=== PATIENT | male | born 1945 | race Caucasian/White ===

== ENCOUNTER 2018-03-17 16:10 | Emergency (ER) | payer MEDICARE, OTHER ==
[2018-03-17 16:20] VITALS: BP 119/71
--- NOTE | 2018-03-17 17:22 | EDPHY ---
H & P Time Seen by Provider: 03/17/18 16:37 HPI/ROS: CHIEF COMPLAINT: Left shoulder pain HISTORY OF PRESENT ILLNESS: Patient is a 70-year-old male who presents emergency department left shoulder pain. The patient tripped while hiking. He struck his left shoulder. He now has mild to moderate pain. It is worse with movement. No numbness or tingling. Patient did not strike his head. He denies any other injury. No neck pain. REVIEW OF SYSTEMS: My complete review of systems is negative except as mentioned in the HPI. Past Medical/Surgical History: Gout, prostate issues Smoking Status: Never smoked Physical Exam: Vitals noted General Appearance: [Alert and no distress]. Head: [Pupils equal. Normal]. Respiratory: [No respiratory distress]. Cardiac: [regular rate and rhythm]. Extremities: [Patient's left shoulder appears normal. The patient has mild tenderness to palpation over his deltoid. No clavicular TTP, no scapular tenderness palpation]. Mild discomfort with rotation. Neurovascular intact distally Skin: No rashes or lesions. Neuro: [Alert. Normal mood and affect]. Constitutional: Initial Vital Signs Temperature (C) 36.3 C 03/17/18 16:17 Heart Rate 68 03/17/18 16:17 Respiratory Rate 15 03/17/18 16:17 Blood Pressure 119/71 03/17/18 16:17 O2 Sat (%) 97 03/17/18 16:17 O2 Delivery Mode Room Air Allergies/Adverse Reactions: allopurinol [Allopurinol] Allergy (Verified 07/11/12 08:13) Home Medications: Medication Instructions Recorded Cyclobenzaprine [Flexeril 10 MG 10 mg PO PRN 07/11/12 (RX)] Probenecid [Probenecid 500mg (RX)] 500 mg PO BID 07/11/12 RIZATRIPTAN BENZOATE [Maxalt Uniform Cap Operator] 5 mg PO PRN 07/11/12 TESTOSTERONE [TESTIM] 5 gm TD DAILY 07/11/12 metroNIDAZOLE 0.75% [Metrocream 45 gm TOP DAILY 07/11/12 0.75% (RX)] oxyCODONE/APAP 5/325 [Percocet 1 tab PO Q4-6PRN PRN #14 tab 07/11/12 5/325] Medical Decision Making - Diagnostics Imaging Results: Imaging Impressions Shoulder X-Ray 03/17/18 16:33 Impression: Normal left shoulder series. ED Course/Re-evaluation: In the emergency department I discussed possible etiologies with the patient. I answered all his questions. X-ray was ordered. Left shoulder x-ray: No acute disease noted. Discussed results with the patient. I answered all his questions. Patient was given a shoulder sling for comfort. He was given warnings prior to leaving. He will return with worsening symptoms. Differential Diagnosis: My differential includes but is not limited to fracture, dislocation, contusion , sprain, strain, rotator cuff injury Departure - Departure Disposition: Home, Routine, Self-Care Clinical Impression: Shoulder contusion Qualifiers: Encounter type: initial encounter Laterality: left Qualified Code(s): S40.012A - Contusion of left shoulder, initial encounter Condition: Good Instructions: Shoulder Pain (ED) Additional Instructions: Your x-ray was negative. No broken bones. You need follow-up with Orthopedics. Call to make an appointment. Referrals: Christian Sarkar MD [Medical Doctor] - 5-7 days, call for appt.
== END 2018-03-17 17:40 | disposition home or self-care (01) ==
DX: S40.012A Contusion of left shoulder, initial encounter (principal); W01.198A Fall on same level from slipping, tripping and stumbling with subsequent striking against other object, initial encounter; Y99.8 Other external cause status; Y93.01 Activity, walking, marching and hiking
CPT/HCPCS: 73030; 99283; A4565